=== PATIENT | female | born 1995 | race Caucasian/White ===

== ENCOUNTER 2022-01-26 15:15 | Emergency (ER) | payer MEDICAID ==
[~2022-01-26] VITALS: Ht 162.6 cm; Wt 82.0 kg
[2022-01-26] MEDS ORDERED: SODIUM CHLORIDE 0.9% 1,000 ML IV ONE (15:30)
[2022-01-26] MEDS ORDERED: KETOROLAC TROMETH 30 MG/ML 1ML VIAL IV ONE (15:30)
[2022-01-26] MEDS ORDERED: METOCLOPRAMIDE HCL 5MG/ml INJ 2ml VIAL IV ONE (15:30)
[2022-01-26 16:28] LABS: BUN/Creatinine Ratio 12.3; Calcium 8.7 mg/dL (8.5-10.1); Potassium 3.8 mmol/L (3.5-5.1)
[2022-01-26 16:30] LABS: Basophils # (auto) 0 10 ^3/uL (0-0.2); Basophils % (auto) 0.4 % (0.0-2.0); Eosinophils # (auto) 0.2 10 ^3/uL (0-0.8); Eosinophils % (auto) 1.9 % (0.0-7.0); Hematocrit 41.7 % (36.0-46.0); Hemoglobin 13.9 g/dL (12.2-16.2); Lymphocytes # (auto) 1.8 10 ^3/uL (0.4-5.4); Lymphocytes % (auto) 17.5 % (10.0-50.0); Mean Corpuscular Hemoglobin 30.7 pg (28.0-32.0); Mean Corpuscular Hgb Conc. 33.3 g/dL (32.0-36.0); Mean Corpuscular Volume 92.1 fL (80.0-100.0); Monocytes # (auto) 0.5 10 ^3/uL (0-1.3); Monocytes % (auto) 4.8 % (0.0-12.0); Neutrophils # (auto) 7.5 10 ^3/uL (1.6-8.6); Neutrophils % (auto) 75.4 % (37.0-80.0); Nucleated Red Blood Cells % 0.1 %; Red Blood Cells 4.53 10^6/uL (4.0-5.20); Red Cell Distribution Width 12.8 % (11.8-14.3)
[2022-01-26] MEDS ORDERED: SODIUM CHLORIDE 0.9% 1,000 ML IVB ONE (16:30)
[2022-01-26] MEDS ORDERED: HYDROmorphone HCL 2 MG/ML VL/or syr IV ONE (16:30)
[2022-01-26 16:46] LABS: Magnesium 2.2 mg/dL (1.6-2.6)
[2022-01-26 16:50] LABS: Urine Bacteria MANY /hpf (None Seen); Urine Blood 1+ /uL (Negative); Urine Mucus MODERATE (None Seen); Urine Specific Gravity 1.031 (1.001-1.035); Urine WBC 11 /hpf (0 - 5)
[2022-01-26] MEDS ORDERED: NAP500T PO (18:19)
[2022-01-26] MEDS ORDERED: HYDR-4902 PO (18:19)
[2022-01-26] MEDS ORDERED: TAM04C PO (18:19)
[2022-01-26 19:08] VITALS: BP 166/110
[2022-01-27] MEDS ORDERED: NAP500T PO (09:45)
[2022-01-27] MEDS ORDERED: TAM04C PO (09:45)
== END 2022-01-26 19:12 | disposition home or self-care (01) ==
LOC: ER 15:15
DX: N13.30 Unspecified hydronephrosis (principal); N20.2 Calculus of kidney with calculus of ureter
CPT/HCPCS: 36415; 74176; 80048; 81001; 83690; 83735; 84702; 85025; 96361; 96374; 96375; 99284; J1170; J1885; J2765; J7030

== ENCOUNTER 2023-12-12 13:10 | Emergency (ER) | payer MEDICAID ==
[~2023-12-12] VITALS: Ht 162.6 cm; Wt 84.6 kg
[~2023-12-12 13:10] MED LIST: HYDR-4902 PO; NAP500T PO; TAMS-35 PO
[2023-12-12] MEDS: SODIUM CHLORIDE 0.9% 1,000 ML IV ONE (13:45)
[2023-12-12] MEDS: KETOROLAC TROMETH 30 MG/ML 1ML VIAL IV ONE (13:45)
[2023-12-12 13:49] LABS: Urine Bacteria None Seen /hpf (None Seen)
[2023-12-12 14:00] VITALS: TEMP 98.9
[2023-12-12 14:05] LABS: Basophils # (auto) 0 10 ^3/uL (0-0.2); Basophils % (auto) 0.4 % (0.0-2.0); Eosinophils # (auto) 0.1 10 ^3/uL (0-0.8); Eosinophils % (auto) 1.9 % (0.0-7.0); Hematocrit 39.8 % (36.0-46.0); Hemoglobin 13.5 g/dL (12.2-16.2); Lymphocytes # (auto) 1.6 10 ^3/uL (0.4-5.4); Lymphocytes % (auto) 24.1 % (10.0-50.0); Mean Corpuscular Hemoglobin 30.1 pg (28.0-32.0); Mean Corpuscular Hgb Conc. 34.1 g/dL (32.0-36.0); Mean Corpuscular Volume 88.4 fL (80.0-100.0); Monocytes # (auto) 0.5 10 ^3/uL (0-1.3); Monocytes % (auto) 6.9 % (0.0-12.0); Neutrophils # (auto) 4.5 10 ^3/uL (1.6-8.6); Neutrophils % (auto) 66.7 % (37.0-80.0); Nucleated Red Blood Cells % 0.1 %; Red Cell Distribution Width 13.4 % (11.8-14.3); White Blood Cell 6.8 10^3/uL (4.4-10.8)
[2023-12-12 14:10] LABS: Urine Blood 3+ /uL (Negative); Urine Budding Yeast FEW /hpf (None Seen); Urine Clarity Turbid (Clear); Urine Color Yellow (Yellow); Urine Mucus FEW (None Seen); Urine Protein, UAD 2+ (Negative); Urine Specific Gravity 1.033 (1.001-1.035); Urine Urobilinogen Normal (Negative); Urine WBC 2 /hpf (0 - 5); Urine pH 5.5 (5.0-9.0)
[2023-12-12 14:21] LABS: Alanine Aminotransferase 16 U/L (7-40); Albumin 4.5 g/dL (3.2-4.8); Alkaline Phosphatase 70 U/L (46-116); Anion Gap 11 (5-15); Aspartate Aminotransferase 9 U/L (13-40); Bilirubin, Total 0.7 mg/dL (0.2-1.0); Blood Urea Nitrogen 11 mg/dL (9-23); Calcium 9.4 mg/dL (8.7-10.4); Carbon Dioxide 19 mmol/L (20-30); Chloride 109 mmol/L (98-107); Glucose 95 mg/dL (74-106); Lipase 46 U/L (12-53); Sodium 139 mmol/L (136-145); Total Protein 7.2 g/dL (5.7-8.2)
[2023-12-12] MEDS ORDERED: NAP500T GT (15:38)
[2023-12-12] MEDS ORDERED: CEPH250C PO (15:38)
[2023-12-12] MEDS ORDERED: TAMS-35 PO (15:38)
[2023-12-12] MEDS: TAMSULOSIN HYDROCHLORIDE 0.4 MG CAP PO ONE (15:45)
[2023-12-12 16:39] VITALS: PULSE 73; RESP 20; O2SAT 100
[2023-12-12 18:00] VITALS: BP 105/66; PULSE 62; RESP 14; O2SAT 98
== END 2023-12-12 18:06 | disposition home or self-care (01) ==
LOC: ER 13:24
DX: N13.2 Hydronephrosis with renal and ureteral calculous obstruction (principal); Z87.442 Personal history of urinary calculi; Z79.899 Other long term (current) drug therapy
CPT/HCPCS: 36415; 74176; 80053; 81001; 83690; 85025; 96361; 96374; 99285; J1885; J7030

== ENCOUNTER 2023-12-12 20:26 | Inpatient (IN) | payer MEDICAID ==
[~2023-12-12] VITALS: Ht 162.6 cm; Wt 88.2 kg
[~2023-12-12 20:26] MED LIST changes: +CEPH250C PO; +NAP500T GT
[2023-12-12] MEDS: ONDANSETRON ODT 4 MG TAB PO ONE (22:40)
[2023-12-12] MEDS: HYDROmorphone HCL 2 MG/ML VL/or syr IM ONE (22:44)
[2023-12-13] VITALS (10 sets, daily range): BP systolic 98–123; BP diastolic 52–78; PULSE 72–102; RESP 16–20; TEMP 97.9–98.5; O2SAT 90–99
[2023-12-13] MEDS ORDERED: NITROGLYCERIN 0.4 MG SL TAB SL PRN
[2023-12-13] MEDS ORDERED: HYDROcodone-ACET 5/325MG TAB PO PRN
[2023-12-13] MEDS ORDERED: MORPHINE SULFATE INJ 2 MG/ml SYRG IV PRN
[2023-12-13] MEDS ORDERED: DOCUSATE SOD 100 MG CAP PO PRN
[2023-12-13] MEDS ORDERED: ONDANSETRON HCL 4 MG/2 ML VIAL IV PRN
[2023-12-13] MEDS: SODIUM CHLORIDE 0.9% 1,000 ML IV SCH (00:56)
[2023-12-13] MEDS: HYDROmorphone HCL 2 MG/ML VL/or syr IV PRN (03:21)
[2023-12-13 07:14] LABS: Basophils # (auto) 0 10 ^3/uL (0-0.2); Basophils % (auto) 0.3 % (0.0-2.0); Eosinophils # (auto) 0.1 10 ^3/uL (0-0.8); Hematocrit 32.9 % (36.0-46.0); Hemoglobin 11.5 g/dL (12.2-16.2); Lymphocytes # (auto) 2.4 10 ^3/uL (0.4-5.4); Lymphocytes % (auto) 30.7 % (10.0-50.0); Mean Corpuscular Hemoglobin 31.1 pg (28.0-32.0); Mean Corpuscular Hgb Conc. 35.1 g/dL (32.0-36.0); Mean Corpuscular Volume 88.6 fL (80.0-100.0); Monocytes # (auto) 0.6 10 ^3/uL (0-1.3); Monocytes % (auto) 7.7 % (0.0-12.0); Neutrophils # (auto) 4.6 10 ^3/uL (1.6-8.6); Neutrophils % (auto) 60.3 % (37.0-80.0); Nucleated Red Blood Cells % 0.1 %; Red Blood Cells 3.71 10^6/uL (4.0-5.20); Red Cell Distribution Width 13.2 % (11.8-14.3); White Blood Cell 7.7 10^3/uL (4.4-10.8)
[2023-12-13 07:42] LABS: Alanine Aminotransferase 12 U/L (7-40); Alkaline Phosphatase 65 U/L (46-116); Anion Gap 13 (5-15); Calcium 9.2 mg/dL (8.7-10.4); Carbon Dioxide 18 mmol/L (20-30); Chloride 111 mmol/L (98-107); Glucose 76 mg/dL (74-106); Sodium 142 mmol/L (136-145)
[2023-12-13 07:43] LABS: BUN/Creatinine Ratio 16.7 (10.0-20.0); Blood Urea Nitrogen 10 mg/dL (9-23)
[2023-12-13 07:44] LABS: Aspartate Aminotransferase < 8 U/L (13-40)
[2023-12-13 07:45] LABS: Bilirubin, Total 0.5 mg/dL (0.2-1.0); Total Protein 6.2 g/dL (5.7-8.2)
[2023-12-13] MEDS: MANNITOL FTV 25% 12.5 GM/50 ML 50 ML IV ONE (13:18)
[2023-12-13] MEDS: ACETAMINOPHEN 325 MG TAB PO PRN (16:41)
[2023-12-13] MEDS: TAMSULOSIN HYDROCHLORIDE 0.4 MG CAP PO SCH (18:40)
[2023-12-13 18:51] LABS: Urine Bacteria None Seen /hpf (None Seen)
[2023-12-13 19:19] LABS: Urine Blood Negative /uL (Negative); Urine Clarity Turbid (Clear); Urine Color Light-Yellow (Yellow); Urine Protein, UAD Negative (Negative); Urine Specific Gravity 1.027 (1.001-1.035); Urine Urobilinogen Normal (Negative); Urine WBC 2 /hpf (0 - 5); Urine pH 5.5 (5.0-9.0)
[2023-12-13 19:22] LABS: Amphetamine Screen, Urine Neg (NEGATIVE); Barbiturate Scree,Urine Neg (NEGATIVE); Benzodiazephine Screen, Urine Neg (NEGATIVE); Cocaine Screen, Urine Neg (NEGATIVE); Opiate Scree,Urine Neg (NEGATIVE); Phencyclidine Screen, Urine Neg (NEGATIVE)
[2023-12-13 19:23] LABS: Cannabinoid Screen, Urine Neg (NEGATIVE)
[2023-12-13] MEDS: KETOROLAC TROMETH 30 MG/ML 1ML VIAL IV PRN (21:10)
[2023-12-14 01:00] VITALS: BP 116/90; PULSE 70; RESP 17; TEMP 97.7; O2SAT 92
[2023-12-14 05:00] VITALS: BP 100/71; PULSE 64; RESP 16; TEMP 98.4; O2SAT 93
[2023-12-14 07:27] LABS: Basophils # (auto) 0 10 ^3/uL (0-0.2); Basophils % (auto) 0.3 % (0.0-2.0); Eosinophils # (auto) 0.1 10 ^3/uL (0-0.8); Eosinophils % (auto) 2.2 % (0.0-7.0); Hematocrit 32.8 % (36.0-46.0); Hemoglobin 11.2 g/dL (12.2-16.2); Lymphocytes # (auto) 2.7 10 ^3/uL (0.4-5.4); Lymphocytes % (auto) 42.7 % (10.0-50.0); Mean Corpuscular Hemoglobin 30.6 pg (28.0-32.0); Mean Corpuscular Hgb Conc. 34.2 g/dL (32.0-36.0); Mean Corpuscular Volume 89.6 fL (80.0-100.0); Monocytes # (auto) 0.4 10 ^3/uL (0-1.3); Monocytes % (auto) 6.8 % (0.0-12.0); Neutrophils # (auto) 3.1 10 ^3/uL (1.6-8.6); Nucleated Red Blood Cells % 0.1 %; Red Blood Cells 3.67 10^6/uL (4.0-5.20); Red Cell Distribution Width 13.4 % (11.8-14.3); White Blood Cell 6.4 10^3/uL (4.4-10.8)
[2023-12-14 07:32] LABS: Anion Gap 5 (5-15); Carbon Dioxide 25 mmol/L (20-30); Chloride 110 mmol/L (98-107); Potassium 4.4 mmol/L (3.5-5.1); Sodium 140 mmol/L (136-145)
[2023-12-14 07:38] LABS: BUN/Creatinine Ratio 15.9 (10.0-20.0); Blood Urea Nitrogen 11 mg/dL (9-23); Glucose 85 mg/dL (74-106)
[2023-12-14 08:25] VITALS: PULSE 58; RESP 17; O2SAT 95
[2023-12-14 09:00] VITALS: BP 101/61; PULSE 58; RESP 17; TEMP 97.7; O2SAT 95
[2023-12-14] MEDS ORDERED: CYAN100061 PO (13:44)
[2023-12-14] MEDS ORDERED: TAMS-35 PO (13:44)
[2023-12-14] MEDS ORDERED: ERGO1CAP23 PO (13:44)
[2023-12-14] MEDS ORDERED: ACET-1882 PO (13:44)
[2023-12-14] MEDS ORDERED: ERGOCALCIFEROL 50,000 UNIT(1.25MG) CAP PO SCH (13:45)
[2023-12-14] MEDS ORDERED: CYANOCOBALAMIN 500 MCG TAB PO ONE (13:45)
[2023-12-14 13:51] VITALS: BP 128/70; PULSE 80; RESP 17; TEMP 97.5; O2SAT 95
[2023-12-15] MEDS ORDERED: CYANOCOBALAMIN 500 MCG TAB PO SCH (10:00)
== END 2023-12-14 14:37 | disposition home or self-care (01) | DRG 463 ==
LOC: ER 20:26 → OVERFLOW 23:58 → EAST 23:58
PROVIDERS: ADMIT Internal Medicine; ATTEND Internal Medicine
DX: N13.6 Pyonephrosis (principal); E66.01 Morbid (severe) obesity due to excess calories; I16.0 Hypertensive urgency; Z68.33 Body mass index [BMI] 33.0-33.9, adult; Z82.49 Family history of ischemic heart disease and other diseases of the circulatory system; Z83.3 Family history of diabetes mellitus; Z79.899 Other long term (current) drug therapy
CPT/HCPCS: 36415; 80048; 80053; 80307; 81001; 82306; 82607; 83036; 84443; 85025; 87086; 96372; G0378; J1885; Q0162

== ENCOUNTER 2025-03-21 22:13 | Emergency (ER) | payer MEDICAID ==
[~2025-03-21] VITALS: Ht 162.6 cm; Wt 91.9 kg
[~2025-03-21 22:13] MED LIST changes: +ACET-1882 PO; -CEPH250C PO; +CYAN100061 PO; +ERGO1CAP23 PO; -HYDR-4902 PO; -NAP500T GT; -NAP500T PO
--- NOTE | 2025-03-22 00:21 | DVH ---
INDICATION: vag bleed TECHNIQUE: Multiple real-time grayscale transabdominal sonographic images along with color and duplex Doppler of the uterus and ovaries were obtained. COMPARISON: None FINDINGS: The uterus measures 7 x 5.8 x 3.7 cm. Anterior intramural 1.3 cm fibroid. The endometrial stripe gail ures 4 mm. Right ovary measures 2.4 x 1.4 x 2.4 cm with normal Doppler color flow. Left ovary measures 2.5 x 1.2 x 2.6 cm with normal Doppler color flow. No visualized ascites. IMPRESSION: 1. No acute sonographic abnormality of the of the pelvis. 2. Subserosal uterine fibroid.
[2025-03-22 00:46] LABS: Urine Protein, UAD Negative (Negative)
--- NOTE | 2025-03-22 00:55 | ED.PDOC ---
CAREER SERVICES REPRESENTATIVE HPI Comments Patient complaining of vaginal spotting which started yesterday after inter course. States she has no pelvic cramping no dysuria. He says today she has continued to have some mild spotting. Patient wanted to make sure no serious issues are going on. Reports last menstrual period was two weeks ago. Chief Complaint: Vaginal Discharge Time Seen by MD: 22:27 Reviewed Notes: Nurses Notes Allergies: Coded Allergies: NO KNOWN ALLERGIES (Unverified , 01/26/22) Home Meds Active Scripts Cyanocobalamin (B-12) 1,000 Mcg Tab, 1000 MCG PO DAILY for 30 Days, #30 TAB Prov:EDMOND COULTER RESIDENT 12/14/23 Tamsulosin Hcl (Flomax) 0.4 Mg Cap, 0.4 MG PO QPM for 30 Days, #30 CAP Prov:EDMOND COULTER 12/14/23 Ergocalciferol (VITAMIN D 92076 UNIT) 50,000 [place], [address] UNIT PO Q7D for 30 Days, #10 CAP Prov:EDMOND COULTER 12/14/23 Acetaminophen (Acetaminophen) 325 Mg Tab, 650 MG PO Q6HP PRN for 10 Days, #80 TAB Prov:EDMOND COULTER 12/14/23 Information Source: Patient Past Medical History PAST MEDICAL HISTORY: Kidney Stones Surgical History: Denies all surgeries [employer] History: Ovarian Cysts Family History Family History: Reviewed,noncontributory to illness, Unknown Social History Smoker: Non-Smoker Alcohol: Denies ETOH Use Drugs: Denies Drug Use Lives In: Home Constitutional: denies: chills, diaphoresis, fatigue, fever, malaise, sweats, weakness, others EENTM: denies: blurred vision, double vision, ear bleeding, ear discharge, ear drainage, ear pain, ear ringing, eye pain, eye redness, hearing loss, mouth pain, mouth swelling, nasal discharge, nose bleeding, nose congestion, nose pain, photophobia, tearing, throat pain, throat swelling, voice changes, others Respiratory: denies: cough, hemoptysis, orthopnea, SOB at rest, shortness of breath, SOB with excertion, stridor, wheezing, others Cardiovascular: denies: chest pain, dizzy spells, diaphoresis, Dyspnea on exertion, edema, irregular heart beat, left arm pain, lightheadedness, palpitations, PND, syncope, others Gastrointestinal: denies: abdomen distended, abdominal pain, blood streaked bowels, constipated, diarrhea, dysphagia, difficulty swallowing, hematemesis, melena, nausea, poor appetite, poor fluid intake, rectal bleeding, rectal pain, vomiting, others Genitourinary: reports: abnormal vagina bleeding; denies: burning, dyspareunia, dysuria, flank pain, frequency, hematuria, incontinence, pain, , vagina discharge, urgency, others Neurological: denies: dizziness, fainting, headache, left sided numbness, left sided weakness, numbness, paresthesia, pre-existing deficit, right sided numbness, right sided weakness, seizure, speech problems, tingling, tremors, weakness, others Musculoskeletal: denies: back pain, gout, joint pain, joint swelling, muscle pain, muscle stiffness, neck pain, others Integumetry: denies: bruises, change in color, change in hair/nails, dryness, laceration, lesions, lumps, rash, wounds, others Allergic/Immunocompromised: denies: Difficulty Healing, Frequent Infections, Hives, Itching, others Physical Exam General Appearance: No Apparent Distress, Normal HEENT: Normal ENT Inspection, Pharynx Normal, TMs Normal Neck: Full Range of Motion, Non-Tender, Normal, Normal Inspection Respiratory: Chest Non-Tender, Lungs Clear, No Accessory Muscle Use, No Respiratory Distress, Normal Breath Sounds Cardiovascular: No Edema, No JVD, No Murmur, No Gallop, Normal Peripheral Pulses, Regular Rate/Rhythm Breast Exam: Deferred Gastrointestinal: No Organomegaly, Non Tender, No Pulsatile Mass, Normal Bowel Sounds, Soft Genitalia: Deferred Pelvic: Deferred Rectal: Deferred Extremities: No calf tenderness, Normal capillary refill, Normal inspection, Normal range of motion, Non-tender, No pedal edema Musculoskeletal : Apperance: Normal Neurologic: Alert, multi needle machine operator II-XII nml as Tested, No Motor Deficits, Normal Affect, Normal Mood, No Sensory Deficits Cerebellar Function: Normal Reflexes: Normal Skin: Dry, Normal Color, Warm Lymphatic: No Adenopathy Was a procedure done? Was a procedure done?: No Differential Diagnosis ([employer]) Vaginal Bleeding: Dysmenorrhea, Menorrhagia, Menstrual Bleeding X-Ray, Labs, Meds, VS Vital Signs Date Time Temp Pulse Resp B/P (MAP) Pulse Ox O2 Delivery O2 Flow Rate FiO2 03/21/25 22:19 98.2 76 16 147/86 99 98.2 Lab Test 03/21/25 00:09 Range/Units Urine Color Light-yellow Yellow Urine Clarity Clear Clear Urine pH 7.0 5.0-9.0 Urine Specific [place] 1.028 1.001-1.035 Urine Protein Negative Negative Urine Ketones Negative Negative Urine Blood 2+ H Negative /uL Urine Nitrite Negative Negative Urine Bilirubin Negative Negative Urine Urobilinogen Normal Negative mg/dL Urine Leukocyte Esterase Negative Negative /uL Urine RBC 2 0 - 4 /hpf Urine Microscopic WBC 1 0-5 /HPF Urine Squamous Epithelial Cells Few <5 /hpf Urine Bacteria None seen None Seen /hpf Urine Glucose Normal Normal mg/dL Urine Test Negative Negative X-Ray, Labs, Meds, VS Comment Imaging was reviewed by this provider, there is no obvious pathological or acute disease process. Pending radiology review Labs were reviewed by this provider, no abnormalities Vital signs reviewed by this provider, clinically stable Time of 1ST Reevaluation: 00:54 Reevaluation 1ST: Improved Patient Education/Counseling: Diagnosis, Treatment, Need For Follow Up (Follow up with PCP next available appointment.) Family Education/Counseling: Diagnosis Departure 1 Departure Time of Disposition: 00:54 Impression: Primary Impression: PCB (post coital bleeding) Disposition: 01 HOME / SELF CARE / HOMELESS Condition: Stable Discharged With: Self Critical Care Note Critical Care Time?: No Stability Stability form required: No Heart Score Heart Score: Heart Score Response (Comments) Value History N/A 0 EKG N/A 0 Age N/A 0 Risk Factors N/A 0 Troponin N/A 0 Total 0 JEREMY BAILEY Mar 22, 2025 00:55
[2025-03-22 01:39] VITALS: BP 138/89; PULSE 71; RESP 18; TEMP 98.3; O2SAT 100
== END 2025-03-22 01:44 | disposition home or self-care (01) ==
LOC: ER 22:13
DX: N93.0 Postcoital and contact bleeding (principal); Z87.442 Personal history of urinary calculi
CPT/HCPCS: 76856; 81001; 81025